=== PATIENT | female | born 1940 | race Two or more races ===

== ENCOUNTER 2018-09-16 23:13 | Inpatient (IN) | payer MEDICARE, OTHER ==
[~2018-09-16] VITALS: Ht 160 cm; Wt 76.7 kg
[2018-09-16 23:25] VITALS: BP 118/50
--- NOTE | 2018-09-16 23:25 | NUR ---
ED Nurse Note: Chana RICHARDS from [facility] c/o pnuemonia and elevated WBC. at time of arrival patient is warm to touch, EMS states that the patient had an elevated temp of 99.8. at time of arrival patients temp is 98.8. patient is alert and oriented x4. skin intact
[2018-09-16] MEDS ORDERED: Cefepime HCl 1 GM in D5W 55 ML IVPB ONE (23:45)
[2018-09-17 00:07] LABS: APPEARANCE,URINE SLIGHTLY CLOUDY; BILIRUBIN, URINE 1+ (NEGATIVE); GLUCOSE, URINE (UA) NEGATIVE (NEGATIVE); KETONES,URINE 1+ (NEGATIVE); LEUKOCYTE ESTERASE ,URINE 3+ (NEGATIVE); NITRITE,URINE POSITIVE (NEGATIVE); PH,URINE 5 (4.5-8.0); PROTEIN,URINE 3+ (NEGATIVE); UROBILINOGEN,URINE 1 MG/DL (0.0-1.0)
[2018-09-17 00:09] LABS: BASOPHILS % (AUTO) 1.3 % (0.0-2.0); EOSINOPHILS % (AUTO) 1.1 % (0.0-3.0); HEMATOCRIT 26.5 % (37.0-47.0); HEMOGLOBIN 8.6 G/DL (12.0-16.0); LYMPHOCYTES % (AUTO) 24.7 % (20.0-45.0); MEAN CORPUSCULAR VOLUME 91 FL (80-99); MONOCYTES % (AUTO) 8.9 % (1.0-10.0); NEUTROPHILS % (AUTO) 63.9 % (45.0-75.0); PLATELET COUNT 316 K/UL (150-450); RED BLOOD COUNT 2.92 M/UL (4.20-5.40); RED CELL DISTRIBUTION WIDTH 14.5 % (11.6-14.8); WHITE BLOOD COUNT 13.4 K/UL (4.8-10.8)
[2018-09-17 00:14] LABS: COLOR,URINE YELLOW
[2018-09-17 00:16] LABS: ANION GAP 6 mmol/L (5-15); BLOOD UREA NITROGEN 20 mg/dL (7-18); CALCIUM 8.1 MG/DL (8.5-10.1); CARBON DIOXIDE 28 MMOL/L (21-32); CHLORIDE 94 MMOL/L (98-107); CREATININE 4.6 MG/DL (0.55-1.30); POTASSIUM 3.5 MMOL/L (3.5-5.1); SODIUM 128 MMOL/L (136-145)
[2018-09-17 00:18] LABS: INR 1.1 (0.9-1.1)
[2018-09-17 00:30] LABS: ALANINE AMINOTRANSFERASE 8 U/L (12-78); ALBUMIN 2.3 G/DL (3.4-5.0); ALBUMIN/GLOBULIN RATIO 0.5 (1.0-2.7); ALKALINE PHOSPHATASE 142 U/L (46-116); ASPARTATE AMINO TRANSFERASE 24 U/L (15-37); BILIRUBIN,TOTAL 0.6 MG/DL (0.2-1.0); CKMB < 0.5 NG/ML (0.0-3.6)
[2018-09-17 01:37] VITALS: BP 120/52
--- NOTE | 2018-09-17 02:10 | NUR ---
ED Nurse Note: Received IV ABx. CUrrently in bed in semi alonso position resting. VSS
--- NOTE | 2018-09-17 02:49 | Emergency Room Report ---
History of Present Illness General Chief Complaint: Abnormal Labs Source: Medical Record Present Illness HPI This is a 78-year-old female with a history of diabetes and renal failure on hemodialysis. She presents from snf with chief complaint of cough and pneumonia. She is been coughing for about a week. No fever chills. Coughing is nonproductive nature. She had a chest x-ray done recently which show a left lower lobe infiltrate versus atelectasis. She was sent here for IV antibiotics and admission. Patient complaining of some mild shortness of breath. Denies any pain other than coughing. No nausea no vomiting. No diarrhea. Allergies: Coded Allergies: BLUE DYE (Verified Allergy, Unknown, 09/16/18) CODEINE (Verified Allergy, Unknown, 09/16/18) IODINE (Verified Allergy, Unknown, 09/16/18) LATEX (Verified Allergy, Unknown, 09/16/18) PINE NUT (Verified Allergy, Unknown, 09/16/18) RED DYE (Verified Allergy, Unknown, 09/16/18) Uncoded Allergies: SEAFOOD (Allergy, Unknown, 09/16/18) Patient History Past Medical History: see triage record, old chart reviewed, DM, renal disease , dialysis Past Surgical History: other Pertinent Family History: none Social History: Denies: smoking Last Menstrual Period: na Now: No Immunizations: other Reviewed Nursing Documentation: PMH: Agreed; PSxH: Agreed Nursing Documentation-PMH Past Medical History: No History, Except For Hx Diabetes: Yes - type 2 Hx Dialysis: Yes - MWF, ESRD, Dysphagia Review of Systems Eye: Denies: eye pain, blurred vision ENT: Denies: ear pain, nose congestion, throat swelling Respiratory: Reports: cough; Denies: shortness of breath Cardiovascular: Denies: chest pain, palpitations Gastrointestinal: Denies: abdominal pain, diarrhea, nausea, vomiting Musculoskeletal: Denies: back pain, joint pain Skin: Denies: rash Neurological: Denies: headache, numbness Endocrine: Denies: increased thirst, increased urine Hematologic/Lymphatic: Denies: easy bruising All Other Systems: negative except mentioned in HPI Physical Exam Vital Signs Date Time Temp Pulse Resp B/P (MAP) Pulse Ox O2 Delivery O2 Flow Rate FiO2 09/16/18 23:25 98.4 69 22 118/50 (72) 97 Nasal Cannula 3.0 Vitals unremarkable Sp02 EP Interpretation: reviewed, normal General Appearance: well appearing, no apparent distress, alert Head: normocephalic, atraumatic Eyes: bilateral eye PERRL, bilateral eye EOMI ENT: hearing grossly normal, normal pharynx Neck: full range of motion, supple, no meningismus Respiratory: chest non-tender, rhonchi - Left lower lobe Cardiovascular #1: regular rate, rhythm, no murmur Gastrointestinal: normal bowel sounds, non tender, no mass, no organomegaly, no bruit, non-distended Musculoskeletal: back normal, gait/station normal, normal range of motion Psychiatric: mood/affect normal Medical Decision Making Diagnostic Impression: Primary Impression: HCAP (healthcare-associated pneumonia) Additional Impressions: UTI (urinary tract infection) Qualified Codes: N30.00 - Acute cystitis without hematuria CKD (chronic kidney disease) stage V requiring chronic dialysis Anemia Qualified Codes: D64.9 - Anemia, unspecified ER Course Patient with a cough and has pneumonia and the chest x-ray. Antibiotics given. No evidence of ACS, PE, dissection name a few. Patient better after IV antibiotics. Will admit versus transfer patient insurance. I discussed the case with Dr. Dahl who accepted patient for transfer to [facility]. Unable to be transferred in a timely manner. She will be admitted here. She has HCP insurance. I discussed the case with Dr. Romero who will admit. Lab Results Impression Labs showed leukocytosis EKG Diagnostic Results Rate: normal Rhythm: NSR ST Segments: no acute changes Rhythm Strip Diag. Results EP Interpretation: yes Rate: 60 Rhythm: NSR, no PVC's, no ectopy Chest X-Ray Diagnostic Results Chest X-Ray Diagnostic Results : Chest X-Ray Ordered: Yes # of Views/Limited/Complete: 1 View Indication: Shortness of Breath EP Interpretation: Yes Interpretation: no effusion, no pneumothorax, other - Lower lobe infiltrate Impression: Other - LLL infiltrate Electronically Signed by: Riley Ornelas MD Last Vital Signs Date Time Temp Pulse Resp B/P (MAP) Pulse Ox O2 Delivery O2 Flow Rate FiO2 09/16/18 23:25 98.4 73 22 118/50 97 Nasal Cannula 3.0 Status: improved Disposition: ADMITTED INPATIENT Condition: Serious Referrals: NON PHYSICIAN (PCP) Riley Ornelas MD Sep 17, 2018 02:49
[2018-09-17 03:37] VITALS: BP 112/52
--- NOTE | 2018-09-17 04:26 | NUR ---
ED Nurse Note: Patient resting in bed. VSS. No acute distress present at this time.
[2018-09-17 05:13] VITALS: BP 103/40
[2018-09-17] MEDS ORDERED: ENULOSE10 GM/15 M PO (05:28)
[2018-09-17] MEDS ORDERED: DAILY VALUE1 EAC1 PO (05:28)
[2018-09-17] MEDS ORDERED: LANTUS SOL100 UNIT/1 SUBQ (05:28)
[2018-09-17] MEDS ORDERED: MAGNESIUM OXID240 MG PO (05:28)
[2018-09-17] MEDS ORDERED: PROMETHAZI6.25 MG/1 ORAL (05:28)
[2018-09-17] MEDS ORDERED: SENNA8.6 M2 PO (05:28)
[2018-09-17] MEDS ORDERED: HUMALOG100 UNIT/4 SUBQ (05:28)
[2018-09-17] MEDS ORDERED: COLACE100 MG ORAL (05:28)
[2018-09-17] MEDS ORDERED: MAGNESIUM CITR100 G1 MC (05:28)
[2018-09-17] MEDS ORDERED: FERROUS SULFAT325 MG ORAL (05:28)
[2018-09-17] MEDS ORDERED: HYDROXYZINE HCL25 M1 PO (05:28)
[2018-09-17] MEDS ORDERED: FLUOXETINE HCL10 MG ORAL (05:28)
[2018-09-17] MEDS ORDERED: TYLENOL325 MG ORAL (05:28)
[2018-09-17] MEDS ORDERED: HEPARIN 50100 UNIT/1 IV (05:28)
[2018-09-17] MEDS ORDERED: RENAL CAPS SOFTG1 MG PO (05:28)
[2018-09-17 05:45] VITALS: BP 100/43
--- NOTE | 2018-09-17 05:45 | NUR ---
TRANSFER TO FLOOR: Patient transferred to [facility] as ordered, per . Report given to HeatherRN
--- NOTE | 2018-09-17 05:54 | NUR ---
NURSE NOTES: Received pt. and report from IDALIA Castañeda from ED via [email or web address]. Patient awake showing no signs of acute distress. Respiration even and non labored on 2L NC O2. AOx4. Oriented to room and unit. awake overnight monitor on, showing SR. VS stable. IV noted on Right Hand 22g, Permacath noted on right upper chest. Bed in lowest position, wheels locked and alarm on. Call light within reach. All needs attended and met. Called Primary MD for admission order. Awaiting call back.
[2018-09-17] MEDS ORDERED: Promethazine Plain 6.25mg/5ml ORAL SCH (06:30)
[2018-09-17] MEDS ORDERED: HydrOXYzine tab 25mg tab ORAL PRN (06:30)
--- NOTE | 2018-09-17 07:10 | NUR ---
NURSE NOTES: Report received from IDALIA Carreno. Observed patient in bed sleeping. Arousable by voice and verbally responsive. Denies pain at this time. On 2L of oxygen via N/C with no distress noted. IV intact and patent. Bed in lowest position. Call light within reach. Will continue to monitor.
--- NOTE | 2018-09-17 07:25 | NUR ---
HAND-OFF: Report given to IDALIA Alexander.
--- NOTE | 2018-09-17 07:33 | NUR ---
NURSE NOTES: Ambulance came to pick the patient up to transfer the patient to [facility]. Called and clarified with Dr. Romero about transfer. Dr. Romero said okay to transfer her to [facility]. Informed charge nurse.
[2018-09-17] MEDS ORDERED: Piperacillin/Tazobactam 2.25 GM in NS 110 ML IV SCH (08:00)
--- NOTE | 2018-09-17 08:17 | NUR ---
NURSE NOTES: Report given to IDALIA Menchaca from [facility].
--- NOTE | 2018-09-17 08:37 | NUR ---
NURSE NOTES: Patient transferred to [facility] via ambulance. Belonging checked. threat monitoring analyst removed prior to discharge. No distress noted with 2L of oxygen via N/C. Stable condition.
--- NOTE | 2018-09-17 08:52 | NUR ---
CASE MANAGEMENT:REVIEW 78 YR OLD FEMALE BIBA FROM [facility] CC: ABNORMAL LABS AND FEVER OF 99.8 PMH: FAILED OUTPATIENT TREATMENT FOR PNEUMONIA SI: PNEUMONIA. UTI. CKD ON HD 98.4 73 22 118/50 97% ON 3L/NC WBC+13.4 H/H-8.6/26.5 IS: 1L NS BOLUS IV CEFEPIME IV LEVAQUIN CHEST XRAY BLOOD CX : TO TELEMETRY 09/17/18 TRANSFERRED TO [facility] PER INSURANCE
[2018-09-17] MEDS ORDERED: Sennosides 8.6mg tab ORAL SCH (09:00)
[2018-09-17] MEDS ORDERED: Docusate 100mg cap ORAL SCH (09:00)
[2018-09-17] MEDS ORDERED: FLUoxetine 10mg cap ORAL SCH (09:00)
[2018-09-17] MEDS ORDERED: Vancomycin 1gm/D5W 275ml IVPB ONE ×2 (09:00)
--- NOTE | 2018-09-17 09:00 | Consultation ---
DATE OF CONSULTATION: 09/17/2018 CONSULTING PHYSICIAN: Loy Cordova M.D. REFERRING PHYSICIAN: Qamar Romero M.D. REASON FOR CONSULTATION: End-stage renal disease. HISTORY OF PRESENT ILLNESS: The patient has end-stage renal disease, on dialysis via catheter. She presents with pneumonia acquired in the ECF. The patient has a history of prior CABG, hypertension, hyperlipidemia, history of bilateral knee replacement. 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 She is only a fair historian. ALLERGIES: [place] nuts, codeine, and iodine. MEDICATIONS: Reviewed from the ECF include aspirin, carvedilol, Colace, , ferrous sulfate, sliding scale insulin, hydroxyzine, glargine insulin, magnesium oxide, mag citrate. HABITS: She is a nondrinker and nonsmoker. SYSTEM REVIEW: HEAD, EYES, EARS, NOSE, AND THROAT: She states her vision and hearing is good. ENDOCRINE: Long-standing diabetes. PULMONARY: Mild cough. No acute shortness of breath. No productive cough. CARDIAC: History of chronic diastolic CHF and prior CABG. No chest pain. GASTROINTESTINAL: Denies nausea or vomiting at this time. History of pancreatitis. GENITOURINARY: She makes little urine. MUSCULOSKELETAL: Bilateral knee replacements. No currently inflamed joints. NEUROLOGIC: Denies CVA or seizures. Has a prior history of encephalopathy. PHYSICAL EXAMINATION: GENERAL: The patient is lying in bed. VITAL SIGNS: Temperature 97.7, pulse 63, respirations 18, blood pressure 100/43. HEAD, EYES, EARS, NOSE, AND THROAT: Sclerae are nonicteric. Ocular motions intact in all directions. Oral mucosa slightly dry. NECK: No adenopathy. LUNGS: Clear. HEART: Rhythm is regular. I hear no murmur. ABDOMEN: Obese and soft. No organomegaly. EXTREMITIES: Show trace edema. VASCULAR: She has a dialysis PermCath, right chest where the catheter appears pulled out about 4 cm, but no purulent drainage. PERTINENT LABORATORY DATA: White count 13.4, hemoglobin is 8.6. Sodium 128, potassium 3.5, BUN 20, creatinine 4.6, glucose 196. IMPRESSION: 1. Healthcare-acquired pneumonia. 2. End-stage renal disease, on dialysis. 3. PermCath partially pulled out, likely should be replaced. She needs a permanent dialysis access. 4. Coronary artery disease. 5. Deconditioning. 6. Rule out sepsis. PLAN: Dialysis will be arranged. As I dictate, I understand that she might be transferred to a contracted hospital, so we will await the decision regarding her disposition. Thank you so much for taking this dictation. Loy Cordova M.D. DR: DIVYA JOB#: [id number] CC:
[2018-09-17] MEDS ORDERED: Zosyn 2.25 gm in D5W 55ml IV SCH (10:00)
--- NOTE | 2018-09-17 11:20 | NUR ---
INSURANCE UPDATED CLINICALS and REVIEW HAVE BEEN FAXED TO: IPA: [facility] PLEASE FAX THE REVIEW AND CLINICAL TO P: [phone] F: [phone] (FAX CLINICALS)
--- NOTE | 2018-09-17 12:03 | Diagnostic Imaging Report ---
Indication: Dyspnea Comparison: None A single view chest radiograph was obtained. Findings: Pulmonary vascular congestion demonstrated. Right permacath noted in good position with the tip projected over the SVC. Heart is enlarged. Sternotomy noted. There is a probable left pleural effusion. Bones are osteopenic. IMPRESSION: Pulmonary edema
--- NOTE | 2018-09-17 13:20 | Discharge Summary ---
Meredith Schumacher NP 09/17/18 1320: Discharge Summary Discharge Summary _ DATE OF ADMISSION: 09/17/2018 DATE OF DISCHARGE: 09/17/2018 DISCHARGED BY: Dr. Qamar Romero HEAD GIRLS GOLF COACH: Dr. Loy Cordova BRIEF HOSPITAL COURSE: Patient is a 78-year-old female, with history of end-stage renal disease on dialysis via catheter. She has history of prior CABG, hypertension, hyperlipidemia and history of bilateral knee replacement. She had a history of necrotizing pancreatitis. She presented to ED from residential for chief complaint of cough and pneumonia. There was no fever or chills. Coughing was nonproductive in nature. She had a chest x-ray done recently which showed a left lower lobe infiltrate versus atelectasis. She complained of mild shortness of breath. On evaluation at the ED, vital signs were stable. Blood work showed WBC of 13. Hemoglobin 8.6, hematocrit 26.5. Sodium was 128, chloride 94. BUN was elevated to 20 and creatinine to 4.6. Troponin was negative. Urinalysis showed +3 leukocyte esterase, 2-4 urine RBC, 15-20 urine WBC, positive nitrite. Chest x-ray showed pulmonary edema. She was then admitted for evaluation of healthcare associated pneumonia. She was continued on residential meds. She was placed on renal diet. She was started empirically on vancomycin and Zosyn. Clamp Carrier Operator was consulted. Dialysis was arranged. Permacath was noted to be partially pulled out, likely should be replaced. Patient will eventually need permanent dialysis access. She was eventually transferred to a contracted hospital. FINAL DIAGNOSES: Healthcare associated pneumonia End-stage renal disease on hemodialysis Permacath partially pulled out Coronary artery disease Deconditioning Rule out sepsis DISPOSITION: Patient was transferred to [facility]. I have been assigned to complete a discharge summary on this account, I was not involved with the patient's management.--CHIKA Yun Michael J. MD 09/17/18 1935: Discharge Summary Discharge Summary _ The patient was transferred to the [facility] before I saw her. Dr Cordova did the history and physical. Meredith Schumacher NP Sep 17, 2018 13:20 Qamar Romero MD Sep 17, 2018 19:35
--- NOTE | 2018-09-17 15:52 | Cardiology Report ---
APPROVED REPORT EKG Measurement Heart [id number] Ectopic atrial rhythm T wave abnormality, consider inferior ischemia Abnormal ECG
== END 2018-09-17 08:30 | disposition short-term general hospital (02) | DRG 193 ==
LOC: EDBD 23:13 → EMR 09-17 00:55 → 2E 09-17 03:30 → EDBEDREQ 09-17 05:27
DX: J18.9 Pneumonia, unspecified organism (principal); N18.6 End stage renal disease; T82.42XA Displacement of vascular dialysis catheter, initial encounter; I13.2 Hypertensive heart and chronic kidney disease with heart failure and with stage 5 chronic kidney disease, or end stage renal disease; I50.32 Chronic diastolic (congestive) heart failure; I25.10 Atherosclerotic heart disease of native coronary artery without angina pectoris; E11.22 Type 2 diabetes mellitus with diabetic chronic kidney disease; Z99.2 Dependence on renal dialysis; Z95.1 Presence of aortocoronary bypass graft; Z88.6 Allergy status to analgesic agent; Z88.8 Allergy status to other drugs, medicaments and biological substances; Z96.653 Presence of artificial knee joint, bilateral; Z79.82 Long term (current) use of aspirin; Z79.4 Long term (current) use of insulin; Z66 Do not resuscitate
CPT/HCPCS: 36415; 71045; 80053; 81003; 82553; 83605; 84484; 85025; 85610; 85730; 87040; 87081; 87086; 93005; 96361; 96365; 96368; 99285